=== PATIENT | female | born 1940 | race Two or more races ===

== ENCOUNTER 2021-05-10 17:27 | Inpatient (IN) | payer OTHER ==
[~2021-05-10] VITALS: Ht 162.6 cm; Wt 42.2 kg
[2021-05-10 19:09] LABS: BASOPHILS % 0.2 % (0.0-2.0); EOSINOPHILS % 0.1 % (0.0-5.0); HEMATOCRIT. 39.9 % (36.0-48.0); HEMOGLOBIN. 13.3 g/dL (12.0-16.0); LYMPHOCYTES % 9.2 % (20.0-50.0); MEAN CORPUSCULAR HEMOGLOBIN 28.4 pg (28.0-32.0); MEAN PLATELET VOLUME 8.7 fl (7.4-10.4); MONOCYTES % 6.9 % (2.0-8.0); NEUTROPHILS % 83.6 % (40.0-76.0); PLATELET 223 x1000/uL (130-400); RED BLOOD CELL COUNT 4.69 mill/uL (4.2-5.4)
[2021-05-10 19:15] LABS: CHLORIDE 110 mEq/L (98-107)
[2021-05-10] MEDS ORDERED: DEXAMETHASONE 10 MG/ML VIAL IV ONE (19:30)
[2021-05-10] MEDS ORDERED: LEVOFLOXACIN 750MG PREMIX 150 ML IV ONE (19:30)
[2021-05-11 10:20] VITALS: BP_SYST 115; BP_SYST 134; BP_DIAS 79
[2021-05-11] MEDS ORDERED: ENOXAPARIN 30MG/0.3ML SYR SUBCUT SCH (11:30)
[2021-05-11] MEDS: CEFTRIAXONE 1,000 MG in DEXTROSE 5% WATER 50 ML IV SCH ×2 (11:30→13:04)
[2021-05-11] MEDS ORDERED: DEXAMETHASONE 4MG/ML 1ML VIAL IV SCH (11:30)
[2021-05-11] MEDS ORDERED: ENOXAPARIN 40MG/0.4ML SYR SUBCUT SCH (11:42)
[2021-05-11 12:00] VITALS: BP 157/77
[2021-05-11 14:19] VITALS: BP 134/77
[2021-05-11 16:00] VITALS: BP 158/79
[2021-05-11 20:00] VITALS: BP 158/84
[2021-05-11] MEDS ORDERED: ALBUTEROL 6.7GM HFA INHALER ORI PRN (21:00)
[2021-05-12] VITALS: BP 112/76
[2021-05-12 04:00] VITALS: BP 136/79
[2021-05-12 06:14] LABS: HEMATOCRIT. 44.5 % (36.0-48.0); HEMOGLOBIN. 14.1 g/dL (12.0-16.0); MEAN CORPUSCULAR HEMOGLOBIN 27.9 pg (28.0-32.0); MEAN CORPUSCULAR VOLUME 87.6 fL (81.0-99.0); MEAN PLATELET VOLUME 8.9 fl (7.4-10.4); PLATELET 271 x1000/uL (130-400); RED BLOOD CELL COUNT 5.08 mill/uL (4.2-5.4); RED CELL DISTRIBUTION WIDTH 15.3 % (11.6-14.6)
[2021-05-12 07:00] LABS: CHLORIDE 113 mEq/L (98-107)
[2021-05-12 08:00] VITALS: BP 154/73
[2021-05-12] MEDS: DEXAMETHASONE 10 MG/ML VIAL IV SCH (08:53)
[2021-05-12] MEDS: ENOXAPARIN 30MG/0.3ML SYR SUBCUT SCH (08:53)
[2021-05-12 12:00] VITALS: BP 148/57
[2021-05-12] MEDS: CEFTRIAXONE 1,000 MG in DEXTROSE 5% WATER 50 ML IV SCH (12:06)
[2021-05-12] MEDS: AZITHROMYCIN 500 MG in DEXT 5% WATER 250 ML IV SCH (12:49)
[2021-05-12] MEDS: DEXTROSE 5% WATER 1,000 ML IV SCH (14:27)
[2021-05-12 16:00] VITALS: BP 138/60
[2021-05-12 18:31] LABS: PLATELET ESTIMATE NORMAL
[2021-05-12 20:00] VITALS: BP 167/73
[2021-05-13] VITALS: BP 158/65
[2021-05-13 04:00] VITALS: BP 152/70
[2021-05-13] MEDS: DEXTROSE 5% WATER 1,000 ML IV SCH (04:48)
[2021-05-13 07:39] LABS: HEMATOCRIT. 40.7 % (36.0-48.0); HEMOGLOBIN. 13.2 g/dL (12.0-16.0); MEAN CORPUSCULAR HEMOGLOBIN 27.9 pg (28.0-32.0); MEAN PLATELET VOLUME 9.1 fl (7.4-10.4); PLATELET 292 x1000/uL (130-400); RED BLOOD CELL COUNT 4.74 mill/uL (4.2-5.4); RED CELL DISTRIBUTION WIDTH 14.4 % (11.6-14.6)
[2021-05-13 07:44] LABS: CHLORIDE 112 mEq/L (98-107)
[2021-05-13 07:56] LABS: PHOSPHORUS 2.7 mg/dL (2.5-4.9)
[2021-05-13 08:00] VITALS: BP 149/64
[2021-05-13] MEDS: DEXAMETHASONE 10 MG/ML VIAL IV SCH (09:50)
[2021-05-13] MEDS: ENOXAPARIN 30MG/0.3ML SYR SUBCUT SCH (09:51)
[2021-05-13 12:00] VITALS: BP 175/68
[2021-05-13] MEDS: CEFTRIAXONE 1,000 MG in DEXTROSE 5% WATER 50 ML IV SCH (12:25)
[2021-05-13] MEDS: AZITHROMYCIN 500 MG in DEXT 5% WATER 250 ML IV SCH (13:50)
[2021-05-13 16:00] VITALS: BP 174/80
[2021-05-13] MEDS: CLONIDINE HCL 0.1MG/24HR PATCH TD SCH (16:56)
[2021-05-13 20:00] VITALS: BP 123/72
[2021-05-13] MEDS: MIRTAZAPINE 15MG TABLET PO SCH ×2 (21:00→21:26)
[2021-05-13 21:37] LABS: PLATELET ESTIMATE NORMAL
[2021-05-14] VITALS: BP 117/69
[2021-05-14 04:00] VITALS: BP 162/75
[2021-05-14] MEDS: HYDRALAZINE 20MG/ML VIAL IV SCH ×5 (05:58→23:00)
[2021-05-14] MEDS: DEXTROSE 5% WATER 1,000 ML IV SCH ×2 (05:58→16:05)
[2021-05-14 08:00] VITALS: BP 132/63
[2021-05-14] MEDS: DEXAMETHASONE 10 MG/ML VIAL IV SCH (08:28)
[2021-05-14] MEDS: ENOXAPARIN 30MG/0.3ML SYR SUBCUT SCH (08:28)
[2021-05-14] MEDS: CEFTRIAXONE 1,000 MG in DEXTROSE 5% WATER 50 ML IV SCH (11:31)
[2021-05-14 12:00] VITALS: BP 122/83
[2021-05-14] MEDS: AZITHROMYCIN 500 MG in DEXT 5% WATER 250 ML IV SCH (13:51)
[2021-05-14 16:00] VITALS: BP 120/64
[2021-05-14 20:45] VITALS: BP 134/62
[2021-05-14] MEDS: MIRTAZAPINE 15MG TABLET PO SCH (21:00)
[2021-05-15 00:06] VITALS: BP 127/53
[2021-05-15 04:00] VITALS: BP 155/74
[2021-05-15] MEDS: HYDRALAZINE 20MG/ML VIAL IV SCH ×3 (06:39→18:00)
[2021-05-15 08:00] VITALS: BP 123/79
[2021-05-15] MEDS: DEXTROSE 5% WATER 1,000 ML IV SCH (09:26)
[2021-05-15] MEDS: DEXAMETHASONE 10 MG/ML VIAL IV SCH (09:26)
[2021-05-15] MEDS: ENOXAPARIN 30MG/0.3ML SYR SUBCUT SCH (09:27)
[2021-05-15 12:00] VITALS: BP 159/62
[2021-05-15] MEDS: CEFTRIAXONE 1,000 MG in DEXTROSE 5% WATER 50 ML IV SCH (12:08)
[2021-05-15] MEDS: AZITHROMYCIN 500 MG in DEXT 5% WATER 250 ML IV SCH (13:39)
[2021-05-15 16:00] VITALS: BP 104/56
[2021-05-15 20:00] VITALS: BP 130/86
[2021-05-15] MEDS: MIRTAZAPINE 15MG TABLET PO SCH (21:00)
[2021-05-16 00:22] VITALS: BP 138/73
[2021-05-16] MEDS: DEXTROSE 5% WATER 1,000 ML IV SCH ×2 (02:05→19:25)
[2021-05-16 04:00] VITALS: BP 146/62
[2021-05-16] MEDS: HYDRALAZINE 20MG/ML VIAL IV SCH ×4 (06:39→19:25)
[2021-05-16] MEDS: ENOXAPARIN 30MG/0.3ML SYR SUBCUT SCH (09:31)
[2021-05-16] MEDS: DEXAMETHASONE 10 MG/ML VIAL IV SCH (09:31)
[2021-05-16] MEDS: AZITHROMYCIN 500 MG in DEXT 5% WATER 250 ML IV SCH (14:40)
[2021-05-16 16:00] VITALS: BP 133/71
[2021-05-16 20:00] VITALS: BP 117/60
[2021-05-16] MEDS: MIRTAZAPINE 15MG TABLET PO SCH (20:37)
[2021-05-17 00:05] VITALS: BP 115/59
[2021-05-17] MEDS: HYDRALAZINE 20MG/ML VIAL IV SCH ×4 (00:26→18:45)
[2021-05-17 04:00] VITALS: BP 102/48
[2021-05-17 08:00] VITALS: BP 114/49
[2021-05-17] MEDS: ENOXAPARIN 30MG/0.3ML SYR SUBCUT SCH (09:20)
[2021-05-17] MEDS: DEXAMETHASONE 10 MG/ML VIAL IV SCH (09:20)
[2021-05-17] MEDS: DEXTROSE 5% WATER 1,000 ML IV SCH (09:21)
[2021-05-17 12:00] VITALS: BP 106/54
[2021-05-17 16:00] VITALS: BP 133/86
[2021-05-17 20:00] VITALS: BP 127/59
[2021-05-17] MEDS: MIRTAZAPINE 15MG TABLET PO SCH (20:20)
[2021-05-18 00:05] VITALS: BP 103/61
[2021-05-18] MEDS: DEXTROSE 5% WATER 1,000 ML IV SCH ×2 (00:52→19:40)
[2021-05-18 04:00] VITALS: BP 109/59
[2021-05-18] MEDS: HYDRALAZINE 20MG/ML VIAL IV SCH ×4 (05:37→16:49)
[2021-05-18 08:00] VITALS: BP 105/47
[2021-05-18] MEDS: ENOXAPARIN 30MG/0.3ML SYR SUBCUT SCH (09:48)
[2021-05-18] MEDS: DEXAMETHASONE 10 MG/ML VIAL IV SCH (09:48)
[2021-05-18 12:00] VITALS: BP 106/48
[2021-05-18 16:00] VITALS: BP 109/52
[2021-05-18 20:00] VITALS: BP 140/72
[2021-05-18] MEDS: MIRTAZAPINE 15MG TABLET PO SCH (20:32)
[2021-05-19 00:05] VITALS: BP 130/73
[2021-05-19] MEDS: HYDRALAZINE 20MG/ML VIAL IV SCH ×3 (00:46→12:00)
[2021-05-19 04:00] VITALS: BP 138/66
[2021-05-19 08:00] VITALS: BP 129/57
[2021-05-19] MEDS: ENOXAPARIN 30MG/0.3ML SYR SUBCUT SCH (08:11)
[2021-05-19] MEDS: DEXAMETHASONE 10 MG/ML VIAL IV SCH (08:11)
[2021-05-19] MEDS ORDERED: CLONIDINE HCL 0.1MG/24HR PATCH TD SCH (09:00)
[2021-05-19 09:47] LABS: HEMATOCRIT. 40.3 % (36.0-48.0); HEMOGLOBIN. 13.3 g/dL (12.0-16.0); MEAN CORPUSCULAR HEMOGLOBIN 27.7 pg (28.0-32.0); MEAN CORPUSCULAR VOLUME 83.8 fL (81.0-99.0); MEAN PLATELET VOLUME 8.9 fl (7.4-10.4); PLATELET 221 x1000/uL (130-400); RED BLOOD CELL COUNT 4.81 mill/uL (4.2-5.4); RED CELL DISTRIBUTION WIDTH 14.6 % (11.6-14.6)
[2021-05-19 10:04] LABS: CHLORIDE 101 mEq/L (98-107)
[2021-05-19] MEDS ORDERED: POTASSIUM CHLORIDE 20MEQ/PACKET PO NR (10:30)
[2021-05-19 18:02] LABS: PLATELET ESTIMATE NORMAL
[2021-05-19 20:00] VITALS: BP 117/68
[2021-05-19] MEDS: MIRTAZAPINE 15MG TABLET PO SCH (20:44)
[2021-05-19] MEDS ORDERED: CLON1PAT11 TP (23:54)
[2021-05-20] VITALS: BP_SYST 104; BP_SYST 106; BP_DIAS 43
[2021-05-20 04:00] VITALS: BP 140/59
[2021-05-20] MEDS: DEXTROSE 5% WATER 1,000 ML IV SCH (05:27)
[2021-05-20] MEDS: HYDRALAZINE 20MG/ML VIAL IV SCH ×2 (05:27)
[2021-05-20 08:00] VITALS: BP 119/51
[2021-05-20] MEDS: ENOXAPARIN 30MG/0.3ML SYR SUBCUT SCH (09:00)
[2021-05-20] MEDS: CLONIDINE HCL 0.1MG/24HR PATCH TD SCH (10:15)
[2021-05-20 10:33] VITALS: BP 119/51
== END 2021-05-20 11:15 | disposition home or self-care (01) | DRG 871 ==
LOC: ER 17:27 → MICUSO 22:48 → 7WST 05-11 07:32
PROVIDERS: ADMIT Family Medicine; ATTEND Family Medicine
DX: A41.89 Other specified sepsis (principal); U07.1 COVID-19; J96.01 Acute respiratory failure with hypoxia; J12.82 Pneumonia due to coronavirus disease 2019; J44.0 Chronic obstructive pulmonary disease with (acute) lower respiratory infection; E87.0 Hyperosmolality and hypernatremia; E44.1 Mild protein-calorie malnutrition; Z68.1 Body mass index [BMI] 19.9 or less, adult; F03.90 Unspecified dementia, unspecified severity, without behavioral disturbance, psychotic disturbance, mood disturbance, and anxiety; E86.0 Dehydration
CPT/HCPCS: 36415; 71045; 80048; 80053; 80076; 82728; 83615; 83735; 84100; 84145; 84484; 85025; 85379; 86140; 87426; 92610; 93005; 99285; A6261; C1893; J0360; J0456; J0696; J1100; J1650; J1956; J7040; J7060; J7070; U0003; U0005